=== PATIENT | female | born 1965 | race Caucasian/White ===

== ENCOUNTER 2017-01-22 03:13 | Emergency (ER) | payer OTHER ==
[~2017-01-22] VITALS: Ht 152.4 cm; Wt 57.1 kg
[~2017-01-22 03:13] MED LIST: ACETAMINOPHEN325 MG PO; ALPRAZOLAM; ALPRAZOLAM PO; DICLOFENAC; FLEXERIL PO; GABAPENTIN800 MG PO; KEPPRA500 M2 PO; LEVAQUIN PO; LORTAB 101 TAB 10/5 PO; NO MEDICATIONS; ORUDIS75 M1 PO; OXAZEPAM10 MG PO; PERCOCET 10/3251 TAB PO; PHENERGAN; PHENERGAN PO; PHENERGAN SUPP25 MG PR; PHENERGAN25 M1 PO; ROBAXIN; SOMA; SOMA PO; VICODIN 5/500 T1 TAB PO; XANAX1 MG PO; ZOFRAN PO
== END 2017-01-22 04:06 | disposition home or self-care (01) ==
LOC: SED 03:13
DX: M54.2 Cervicalgia (principal); M54.9 Dorsalgia, unspecified; G89.29 Other chronic pain; Z90.49 Acquired absence of other specified parts of digestive tract; Z88.0 Allergy status to penicillin; F17.200 Nicotine dependence, unspecified, uncomplicated; Z79.899 Other long term (current) drug therapy
CPT/HCPCS: 96372; 99283; J1040; J1885; J2550